=== PATIENT | female | born 1940 | race Caucasian/White ===

== ENCOUNTER 2018-02-23 06:53 | Day surgery (SDC) | payer OTHER | END 2018-02-23 11:45 | disposition home or self-care (01) | LOC: AMB-ENDOS 06:53 | DX: D12.0 Benign neoplasm of cecum (principal); D12.2 Benign neoplasm of ascending colon; D12.5 Benign neoplasm of sigmoid colon; K57.30 Diverticulosis of large intestine without perforation or abscess without bleeding; K64.8 Other hemorrhoids ==